=== PATIENT | female | born 1955 | race Caucasian/White ===

== ENCOUNTER 2018-12-26 05:53 | Inpatient (IN) ==
[2018-12-21 15:41] LABS: URINE SOURCE CLEAN CATCH
[2018-12-21 15:46] LABS: HEMATOCRIT 43.2 % (37.0-47.0); HEMOGLOBIN 14.3 g/dL (12.0-16.0); MCH 27.8 PG (27-31); MCHC 33.1 g/dL (33-37); MPV 9.6 FL (7.4-10.4); RBC 5.14 XMIL (4.2-5.4); RDW 14.9 % (11.5-14.5); WBC 9.3 X1000 (4.8-10.8)
[2018-12-21 15:48] LABS: BILIRUBIN URINE NEGATIVE (NEGATIVE); BLOOD URINE NEGATIVE (NEGATIVE); COLOR YELLOW; GLUCOSE URINE NEGATIVE (NEGATIVE); KETONE URINE NEGATIVE (NEGATIVE); LEUKOCYTES URINE NEGATIVE (NEGATIVE); NITRITE URINE NEGATIVE (NEGATIVE); PROTEIN URINE NEGATIVE (NEGATIVE); SP GRAVITY URINE 1.015; TURBIDITY URINE CLEAR (CLEAR); UROBILINOGEN URINE NORMAL (NORMAL)
[2018-12-21 15:50] LABS: UR EPITHELIAL CELLS <10 /HPF (<10); URINE BACTERIA NEGATIVE /HPF; URINE RBC <10 /HPF (<10); URINE WBC <10 /HPF (<10)
--- NOTE | 2018-12-21 15:51 | EKG Report ---
Test Performed on : 12/21/2018 3:07:04 PM Test Reason : pat Blood Pressure : / mmHG Vent. Rate : 072 BPM Atrial Rate : 072 BPM P-R Int : 172 ms QRS Dur : 094 ms QT Int : 404 ms P-R-T Axes : 058 -04 044 degrees QTc Int : 442 ms Normal sinus rhythm. Normal ECG No previous ECGs available Confirmed by Jaun Lafleur MD ([id number]) on 12/24/2018 11:59:03 AM
[2018-12-21 16:22] LABS: AGAP 14; ALB/GLOB RATIO 1.3; ALBUMIN 4.3 g/dL (3.5-5.0); ALKALINE PHOSPHATASE 85 U/L (32-104); BUN 12 mg/dL (8-22); CALCIUM 9.6 mg/dL (8.8-10.2); CHLORIDE 98 mmol/L (98-107); COSMO 275; CREATININE 0.9 mg/dL (0.5-0.9); ESTIMATED GFR > 60; GLUCOSE 93 mg/dL (70-104); GOT 18 U/L (10-30); GPT 14 U/L (10-36); POTASSIUM 3.7 mmol/L (3.5-5.1); SODIUM 138 mmol/L (136-145); TCO2 26 mmol/L (25-35); TOTAL BILIRUBIN 0.26 mg/dL (0.20-1.00); TOTAL PROTEIN 7.7 g/dL (6.3-8.3)
[2018-12-26] MEDS ORDERED: METHYLENE BLUE 0.5% ONE (06:00)
[2018-12-26] MEDS ORDERED: NS 250 ML ONE (06:00)
[2018-12-26] MEDS ORDERED: BACITRACIN ONE (06:01)
[2018-12-26] MEDS ORDERED: EXPAREL 1.3% ONE (06:01)
[2018-12-26] MEDS ORDERED: DIPRIVAN 1% ONE (06:58)
[2018-12-26] MEDS ORDERED: QUELICIN (DOSE) ONE (06:59)
[2018-12-26] MEDS ORDERED: NORCURON ONE (06:59)
[2018-12-26] MEDS ORDERED: SODIUM CHLORIDE 0.9% 10 ML ONE (06:59)
[2018-12-26] MEDS ORDERED: XYLOCAINE-MPF 2% ONE (06:59)
[2018-12-26] MEDS ORDERED: LUBRIFRESH PM OPH OINTMENT ONE (07:08)
[2018-12-26] MEDS ORDERED: REGLAN ONE (07:16)
[2018-12-26] MEDS ORDERED: PEPCID ONE (07:16)
[2018-12-26] MEDS ORDERED: TRANSDERM-SCOP ONE (07:16)
[2018-12-26] MEDS ORDERED: LOVENOX ONE (07:17)
[2018-12-26] MEDS ORDERED: LR 1,000 ML ONE ×2 (07:17→14:32)
[2018-12-26] MEDS ORDERED: KEFZOL 1 GM/D5W 2 GM/100 ML IVPB ONE (07:17)
[2018-12-26] MEDS ORDERED: VALIUM ONE (07:17)
[2018-12-26] MEDS ORDERED: VERSED ONE (07:27)
[2018-12-26] MEDS ORDERED: FENTANYL ONE (07:42)
[2018-12-26] MEDS ORDERED: ZOFRAN ONE (07:55)
[2018-12-26] MEDS ORDERED: DECADRON ONE (07:55)
--- NOTE | 2018-12-26 08:01 | Diag Imaging Result Doc PS360 ---
LYMPHOSCINTIGRAPHY W/IMG - 12/26/2018 INDICATION: Lobular carcinoma in situ of right breast COMPARISON: None FINDINGS: 500 uCi of radiotracer was injected into the right breast. After the appropriate delay, there was successful visualization of at least three sentinel lymph nodes in the axilla. IMPRESSION: Successful lymphoscintigraphy of the breast. Electronically signed by Nam Villegas 12/26/2018 7:59 AM
[2018-12-26] MEDS ORDERED: OFIRMEV 1000 MG/ISOTONIC SOLN 1,000 MG/100 ML BOTTLE ONE (08:30)
[2018-12-26] MEDS ORDERED: ROBINUL ONE (08:30)
[2018-12-26 09:11] LABS: URINE SOURCE CATH
[2018-12-26 09:19] LABS: BILIRUBIN URINE NEGATIVE (NEGATIVE); BLOOD URINE TRACE (NEGATIVE); COLOR YELLOW; GLUCOSE URINE NEGATIVE (NEGATIVE); KETONE URINE NEGATIVE (NEGATIVE); LEUKOCYTES URINE NEGATIVE (NEGATIVE); NITRITE URINE NEGATIVE (NEGATIVE); PH URINE 6.5; PROTEIN URINE NEGATIVE (NEGATIVE); SP GRAVITY URINE 1.017; TURBIDITY URINE CLEAR (CLEAR); UROBILINOGEN URINE NORMAL (NORMAL)
[2018-12-26 09:20] LABS: UR EPITHELIAL CELLS >10 /HPF (<10); URINE BACTERIA NEGATIVE /HPF; URINE RBC <10 /HPF (<10); URINE WBC <10 /HPF (<10)
[2018-12-26] MEDS ORDERED: BRIDION ONE (09:21)
[2018-12-26] MEDS ORDERED: KEFZOL 1 GM/D5W 1 GM/50 ML IVPB ONE (10:22)
[2018-12-26] MEDS ORDERED: NIMBEX ONE (10:46)
[2018-12-26] MEDS ORDERED: DILAUDID ONE (11:50)
[2018-12-26] MEDS ORDERED: MORPHINE PCA IV PRN (14:15)
[2018-12-26] MEDS ORDERED: NARCAN IV PRN (14:15)
[2018-12-26] MEDS ORDERED: MORPHINE PCA ONE (14:20)
[2018-12-26] MEDS: MORPHINE ONE ×3 (14:31→14:50)
[2018-12-26] MEDS ORDERED: SODIUM CHLORIDE 0.9% INJ PRN (16:19)
[2018-12-26] MEDS ORDERED: PHENERGAN IV PRN (16:19)
[2018-12-26] MEDS: BENADRYL IV PRN ×3 (17:01→23:00)
[2018-12-26] MEDS ORDERED: DAYPRO PO PRN (17:10)
--- NOTE | 2018-12-26 18:44 | OPERATIVE NOTE ---
PROCEDURE DATE: 12/26/2018 PROCEDURE: Bilateral breast reconstruction with tissue expanders. SURGEON: Dr. Wilde. ICD 10 diagnosis code for this case is Z85.3, personal history of breast cancer. The CPT was 73699, placement of submuscular tissue log cooker and 02840-89, placement of log cooker on the other side. INDICATIONS FOR PROCEDURE: This patient is a 63-year-old white female with a history of lobular breast cancer on the right side beneath her nipple-areolar complex. She requires a mastectomy on that side and she and her general surgeon have decided to do a prophylactic mastectomy on the left side too. She desires bilateral reconstruction with tissue expanders and she was seen in the office for informed consent for this procedure on 12/21/2018. At that point, she understood that she would have bilateral reconstruction with tissue expanders and she knew that this was the first stage of a planned 2-stage procedure. The permanent implants would be placed months from now. She understands there is a period of time where she will not have optimal breast shape. She knows exact bra cup size changes cannot be guaranteed. She knows risks include infection, blood loss, blood clots in legs, heart problems, lung problems, allergic reactions, or blood and serum collections in the operative sites that might require drainage. She understands for the time she is going to have tissue expanders and she cannot have an MRI scan because they have a lot metal in them. She understands exact size and shape cannot be guaranteed. She knows she will have regular skin incisions across her chest from the mastectomies. DESCRIPTION OF PROCEDURE: The patient brought to the operating room after she was marked in outpatient surgery in the sitting position. She went to the operating room, had general anesthesia prepped and draped. The mastectomies were reviewed with Dr. Amin and he proceeded to do the total mastectomies with a right lymph node biopsy. She then had the reconstruction done by dissecting submuscular pockets on both sides and placement of the tissue expanders in the submuscular pocket. A drain was placed under the log cooker. Prior to placing the expanders the area was infiltrated with Exparel for postoperative pain control in the muscle and skin. The muscle envelope was closed with 3-0 Polysorb interrupted sutures. The skin was closed over 2 drains with 3-0 Polysorb sutures in the fat then a running 3-0 Polysorb deep dermal suture followed by running 4-0 Biosyn subcuticular stitch. All the drains were secured with silk drain stitches. The type of expanders that were used in this patient were AeroForm tissue expanders. They were the medium size 600 mL. The serial number for the right one was [id number], the serial number for the left one was [id number]. She had 30 mL of gas released in the operating room on both sides. She tolerated the procedure well, transported recovery room good condition. cc: MD Goldie Turpin MD
--- NOTE | 2018-12-26 19:41 | OPERATIVE NOTE ---
PROCEDURE DATE: 12/26/2018 PREOPERATIVE DIAGNOSIS: Right subareolar breast carcinoma. POSTOPERATIVE DIAGNOSIS: Right subareolar breast carcinoma. PROCEDURE PERFORMED: 1. Right total mastectomy with right axillary sentinel lymph node biopsy and lymphatic mapping. 2. Left total mastectomy. ESTIMATED BLOOD LOSS: 100 mL for my portion. SPECIMENS: 1. Right breast stitch herrera medial. 2. [place] node #1. 1. [place] node #2. 2. [place] node #3. 3. Nonsentinel lymph node tissue. 4. Left breast stitch herrera medial. ANESTHESIA: General. INDICATIONS: A 63-year-old female who has a right subareolar breast mass is elected to undergo bilateral mastectomies with tissue dietist reconstruction by Dr. Wilde. OPERATIVE FINDINGS: There are 3 strongly avid nodes in the right axilla. Final bed count fell to less than 10%. There was a previously noted right subareolar breast mass with an adequate margin of healthy breast tissue around grossly. Frozen section showed no metastatic disease in the sentinel nodes. OPERATIVE NOTE: Risks, benefits, and alternatives discussed with the patient, and she consented to procedure. She was seen preoperatively, and surgical site was confirmed. She was taken to the operating room and placed in supine position. General anesthesia was induced. She was positioned by Dr. Wilde and prepped widely with Betadine and draped in the usual fashion. After time-out, we made elliptical incisions that were previously planned by Dr. Wilde in the right breast creating the mastectomy flap. We continued this cephalad to the clavipectoral fascia medially to the lateral edge of the sternum, laterally to the latissimus, and inferiorly to the border of the rectus muscle. The breast was then removed including the pectoralis fascia protecting muscle and passed off. We then entered the right axilla using our gamma probe. We were able to identify 3 avid nodes and passed these off. They were grossly normal, and the bed count fell to less than 10%. We did protect the median pectoral neurovascular bundle. Hemostasis was noted. We then turned our attention to the left breast, made a similar elliptical incision, carried this up to the clavipectoral fascia in the avascular plane, inferiorly to the rectus, medially to the sternum, laterally to the latissimus. Breast passed off after orienting it. We did remove this off the pectoralis muscle as well with electrocautery. Hemostasis was noted. Moist gauze were placed. Dr. Wilde then took over the case. For the remainder of the operative note, please see his record. cc: Goldie Amin MD MTDShonda
[2018-12-26] MEDS ORDERED: TEARISOL OPH SOLUTION BOTH EYES PRN (20:00)
[2018-12-26] MEDS: PERIDEX MT SCH (20:09)
[2018-12-26] MEDS: KEFZOL 1 GM/D5W 1 GM/50 ML IVPB IV SCH (20:10)
[2018-12-26] MEDS ORDERED: NORCO-7.5 PO PRN (20:29)
[2018-12-26] MEDS ORDERED: HYDROCORTISONE 1% CREAM TOP PRN (20:57)
[2018-12-26] MEDS ORDERED: DESYREL PO SCH (21:00)
[2018-12-26] MEDS ORDERED: DILAUDID PCA VIAL IV PRN (21:00)
[2018-12-26] MEDS: LR 1,000 ML IV SCH (22:39)
[2018-12-27] MEDS: KEFZOL 1 GM/D5W 1 GM/50 ML IVPB IV SCH ×2 (04:18→12:43)
[2018-12-27] MEDS: ZYRTEC PO SCH ×2 (04:18→09:20)
[2018-12-27] MEDS: LR 1,000 ML IV SCH (04:57)
[2018-12-27] MEDS ORDERED: SYNTHROID PO SCH (07:00)
[2018-12-27] MEDS ORDERED: LR 1,000 ML IV SCH (07:26)
[2018-12-27] MEDS ORDERED: HYDROCHLOROTHIAZIDE PO SCH (09:00)
[2018-12-27] MEDS ORDERED: LIPITOR PO SCH (09:00)
[2018-12-27] MEDS ORDERED: COZAAR PO SCH (09:00)
[2018-12-27] MEDS: PERIDEX MT SCH (09:19)
[2018-12-27 11:29] VITALS: BP 140/59
[2018-12-27] MEDS ORDERED: LOVENOX SUBQ ONE (12:31)
--- NOTE | 2018-12-28 07:27 | DISCHARGE SUMMARY ---
ADMISSION DATE: 12/26/2018 DISCHARGE DATE: 12/27/2018 ADMISSION DIAGNOSIS: Right breast cancer. DISCHARGE DIAGNOSIS: Right breast cancer. HOSPITAL COURSE: The patient was admitted to the hospital via outpatient surgery where preoperative herrera were made for bilateral mastectomies that were performed by Dr. Amin including right sentinel lymph node biopsy. She also had bilateral reconstructions with bilateral submuscular tissue expanders. She has done well on the floor. She is eating. She is not nauseated. She is voiding. She understands how to take care of her drains. She is discharged with 3 drains on each side. I will see her in the office on Tuesday for drain management and dressing change. cc: MD Goldie Turpin MD
== END 2018-12-27 13:23 | disposition home or self-care (01) | DRG 581 ==
LOC: SURHOLD 05:53 → 4N 07:16 → EDSTATUS 07:30
PROVIDERS: ADMIT Surgery; ATTEND Surgery
PROC: GE.BXSN (2018-12-26 07:33)
CPT/HCPCS: 78195; 80053; 81001; 85027; 88305; 88307; 88331; 93005; 93010; 94761; 94799; A9270; A9520; C1789; C9290; J0131; J0330; J0690; J1100; J1170; J1200; J1650; J2250; J2270; J2275; J2405; J3010; J7050; J7120; Q9968; Q9974